=== PATIENT | male | born 1975 | race African-American/Black ===

== ENCOUNTER 2019-08-13 11:41 | Emergency (ER) | payer OTHER ==
[~2019-08-13 11:41] MED LIST: ALLO100T PO; LISI1TAB19 PO
[2019-08-13 11:52] VITALS: BP 146/86
[2019-08-13] MEDS ORDERED: TRAM50TA PO (12:08)
[2019-08-13] MEDS ORDERED: CYCL-331 PO (12:08)
[2019-08-13] MEDS ORDERED: IBUPROFEN 600 MG TABLET. PO ONE (12:15)
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
== END 2019-08-13 12:20 | disposition home or self-care (01) ==
LOC: ER 11:41
DX: S13.9XXA Sprain of joints and ligaments of unspecified parts of neck, initial encounter (principal); M54.6 Pain in thoracic spine; Z88.1 Allergy status to other antibiotic agents; V89.2XXA Person injured in unspecified motor-vehicle accident, traffic, initial encounter; Y93.89 Activity, other specified; Y92.89 Other specified places as the place of occurrence of the external cause; Y99.8 Other external cause status
CPT/HCPCS: 99282

== ENCOUNTER 2019-12-05 18:15 | Emergency (ER) | payer OTHER ==
[~2019-12-05] VITALS: Ht 188 cm; Wt 122.7 kg
[~2019-12-05 18:15] MED LIST changes: +CYCL-331 PO; +TRAM50TA PO
[2019-12-05 18:30] VITALS: BP 165/86
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
[2019-12-05] MEDS ORDERED: DEXAMETHASONE SOD PHOS 10 MG/ML VIAL IM ONE (19:00)
[2019-12-05] MEDS ORDERED: KETOROLAC 60 MG/2 ML VIAL. IM ONE (19:00)
[2019-12-05] MEDS ORDERED: ORPHENADRINE CITRATE 60 MG/2 ML VIAL. IM ONE (19:00)
--- NOTE | 2019-12-05 19:52 | RAD ---
PROCEDURE: CERVICAL SPINE 2-3V STUDY DATE: 12/05/2019 CLINICAL INDICATION / HISTORY: Neck pain into the left side with no injury.. TECHNIQUE: 4 VIEWS: AP, lateral , swimmer's lateral and odontoid COMPARISON: None FINDINGS: Alignment is within normal limits. There is preservation of the normal cervical lordosis. Vertebral body heights and disc spaces are well maintained. The atlantoaxial joint is well maintained. No fracture or subluxation is identified. Prevertebral and paraspinous soft tissues are unremarkable. IMPRESSION: Unremarkable views of the cervical spine showing no acute or aggressive osseous lesions. Electronically signed by: Kareem Contreras MD (12/05/2019 7:49 PM) [facility]
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
[2019-12-05] MEDS ORDERED: PRED20TA PO (20:13)
[2019-12-05] MEDS ORDERED: NAPR-682 PO (20:13)
== END 2019-12-05 20:18 | disposition home or self-care (01) ==
LOC: ER 18:15
DX: M43.6 Torticollis (principal); Z88.1 Allergy status to other antibiotic agents
CPT/HCPCS: 72040; 72125; 96372; 99284; J1100; J1885; J2360

== ENCOUNTER 2020-04-25 21:38 | Emergency (ER) | payer OTHER ==
[~2020-04-25] VITALS: Ht 188 cm; Wt 122.7 kg
[~2020-04-25 21:38] MED LIST changes: +NAPR-682 PO; +PRED20TA PO
--- NOTE | 2020-04-25 21:52 | PHYS DOC ---
Past History Past Medical History: No Pertinent History Past Surgical History: No Surgical History Alcohol Use: None Drug Use: None General Adult HPI: HPI: " .. This Lt ear is killing me tonight..it same one I had to get a cyst drained back in l995. It feels like same thing..." Patient is a 44 year old male who presents with above hx and complaints left ear pain . Patient has previous history of cyst formation and 1995. Currently only see inflammation. No pointing abscess. Patient states symptoms are similar to prior's episode where he developed a cyst. Patient denies any history of immunosuppression. No history of recent travel outside [facility]. No history immunosuppression. Pt. normally follows at [place]. Review of Systems: Review of Systems: Constitutional: Denies fever or chills Eyes: Denies change in visual acuity HENT: Denies nasal congestion or sore throat . Complaints of Lt ear pain. Respiratory: Denies cough or shortness of breath Cardiovascular: Denies chest pain or edema GI: Denies abdominal pain, nausea, vomiting, bloody stools or diarrhea : Denies dysuria Musculoskeletal: Denies back pain or joint pain Integument: Denies rash Neurologic: Denies headache, focal weakness or sensory changes Endocrine: Denies polyuria or polydipsia Lymphatic: Denies swollen glands Psychiatric: Denies depression or anxiety Heart Score: Risk Factors: Risk Factors: DM, Current or recent (<one month) smoker, HTN, HLP, family history of CAD, obesity. Risk Scores: Score 0 - 3: 2.5% MACE over next 6 weeks - Discharge Home Score 4 - 6: 20.3% MACE over next 6 weeks - Admit for Clinical Observation Score 7 - 10: 72.7% MACE over next 6 weeks - Early Invasive Strategies Family History: Family History: Noncontributory to presentation Current Medications: Current Meds: See nursing for home meds Allergies: Allergies: Allergies Coded Allergies Type Severity Reaction Last Updated Verified clindamycin Allergy Unknown 12/11/15 No Physical Exam: PE: Constitutional: Moderate acute distress, non-toxic appearance. [] HENT: Normocephalic, atraumatic, left external ear shows inflammation and swelling, TM intact, right ear is normal, oropharynx moist, no oral exudates, nose normal. [] Eyes: PERRLA, EOMI, conjunctiva normal, no discharge. [] Neck: Normal range of motion, no tenderness, supple, no stridor. [] Cardiovascular:Heart rate regular rhythm, no murmur [] Lungs & Thorax: Bilateral breath sounds clear to auscultation [] Abdomen: Bowel sounds normal, soft, no tenderness, no masses, no pulsatile masses. Obese Skin: Warm, dry, no erythema, no rash. [] Back: No tenderness, no CVA tenderness. [] Extremities: No tenderness, no cyanosis, no clubbing, ROM intact, no edema. [] Neurologic: Alert and oriented X 3, normal motor function, normal sensory function, no focal deficits noted. [] Psychologic: Affect anxious, judgement normal, mood normal. [] EKG: EKG: [] Radiology/Procedures: Radiology/Procedures: [] Course & Med Decision Making: Course & Med Decision Making Pertinent Labs and Imaging studies reviewed. (See chart for details) Patient take Bactrim DS twice a day. Patient follow-up primary care. Patient may need follow-up with ENT with possible surgical drainage of cartilage cyst. Patient take Tylenol and ibuprofen for pain. For marked pain may take Vicoprofen. Must follow-up. Return if any concerns. Impression- 1. External otitis-possible cyst formation [] Dragon Disclaimer: Dragon Disclaimer: This electronic medical record was generated, in whole or in part, using a voice recognition dictation system. Departure Departure: Disposition: 01 HOME/RESIDENCE PRIOR TO ADM Condition: STABLE Referrals: KIRK SHEPHERD DO (PCP) Scripts Hydrocodone/Ibuprofen (HYDROCODONE-IBUPROFEN 7.5-200 ) 1 Each Tablet 1 TAB PO PRN Q6HRS PRN for PAIN, #30 TAB 0 Refills Prov: HUNTER ARTHUR MD 04/25/20 Sulfamethoxazole/Trimethoprim (BACTRIM DS TABLET) 1 Each Tablet 1 TAB PO BID for otitis for 10 Days, #20 TAB 0 Refills Prov: HUNTER ARTHUR MD 04/25/20 Justification of Admission: Justification of Admission: Justification of Admission Dx: N/A Dragon Disclaimer This chart was dictated in whole or in part using Voice Recognition software in a busy, high-work load, and often noisy Emergency Department environment. It may contain unintended and wholly unrecognized errors or omissions. HUNTER ARTHUR MD Apr 25, 2020 21:52
[2020-04-25 22:01] VITALS: BP 160/96
[2020-04-25] MEDS ORDERED: SMZ/TMP 800/160MG TABLET. PO ONE (22:15)
[2020-04-25] MEDS ORDERED: KETOROLAC 60 MG/2 ML VIAL. IM ONE (22:15)
[2020-04-25] MEDS ORDERED: SULF1TAB24 PO (22:17)
[2020-04-25] MEDS ORDERED: HYDR-1179 PO (22:17)
== END 2020-04-25 22:40 | disposition home or self-care (01) ==
LOC: ER 21:38
DX: H60.92 Unspecified otitis externa, left ear (principal); Z88.1 Allergy status to other antibiotic agents
CPT/HCPCS: 96372; 99283; J1885